=== PATIENT | male | born 2000 | race African-American/Black ===

== ENCOUNTER 2021-05-30 20:07 | Inpatient (IN) | payer MEDICAID, OTHER ==
[~2021-05-30] VITALS: Ht 180.3 cm; Wt 84.4 kg
[2021-05-30 22:03] LABS: Basophils # (auto) 0 10 ^3/uL (0-0.2); Basophils % (auto) 0.1 % (0.0-2.0); Eosinophils # (auto) 0 10 ^3/uL (0-0.8); Hemoglobin 14.9 g/dL (13.5-17.5); Lymphocytes # (auto) 0.9 10 ^3/uL (0.4-5.4); Mean Corpuscular Hemoglobin 32.9 pg (28.0-32.0); Mean Corpuscular Hgb Conc. 34.6 g/dL (32.0-36.0); Monocytes # (auto) 0.9 10 ^3/uL (0-1.3); Monocytes % (auto) 13.1 % (0.0-12.0); Neutrophils # (auto) 5.3 10 ^3/uL (1.6-8.6); Neutrophils % (auto) 74.8 % (37.0-80.0); Nucleated Red Blood Cells % 0.1 %; Red Blood Cells 4.52 10^6/uL (4.5-5.90); Red Cell Distribution Width 12.7 % (11.8-14.3); White Blood Cell 7.1 10^3/uL (4.4-10.8)
[2021-05-30 22:22] LABS: Alanine Aminotransferase 77 U/L (16-61); Albumin 3.6 g/dL (3.4-5.0); Anion Gap 6 (5-15); Blood Urea Nitrogen 9 mg/dL (7-18); Calcium 9.7 mg/dL (8.5-10.1); Carbon Dioxide 31 mmol/L (21-32); Chloride 100 mmol/L (98-107); Glucose 123 mg/dL (74-106); Potassium 3.4 mmol/L (3.5-5.1); Sodium 137 mmol/L (136-145)
[2021-05-30 22:27] LABS: Alkaline Phosphatase 77 U/L (45-117); Aspartate Aminotransferase 123 U/L (15-37); BUN/Creatinine Ratio 9.7; Bilirubin, Total 1.7 mg/dL (0.2-1.0); GFR African American 131 mL/min; GFR Non-African American 108 mL/min; Total Protein 8.3 g/dL (6.4-8.2)
[2021-05-31] MEDS ORDERED: DexAMETHasone SOD PHOS 10MG/1ML VIAL INJ IV ONE (00:45)
[2021-05-31] MEDS ORDERED: ALBUTEROL SULF 2.5 MG/0.5ML(0.5%) NEB SOLN NEB ONE (00:45)
[2021-05-31] MEDS ORDERED: cefTRIAXone 1GM/50ML D5W 50 ML IV ONE (00:45)
[2021-05-31] MEDS ORDERED: AZITHROMYCIN 500MG/ 250ML 250 ML IV ONE (00:45)
[2021-05-31] MEDS ORDERED: KETOROLAC TROMETH 30 MG/ML 1ML VIAL IV ONE (00:45)
[2021-05-31] MEDS ORDERED: SODIUM CHLORIDE 0.9% 1,000 ML IV ONE (00:45)
[2021-05-31 01:49] LABS: Magnesium 2.1 mg/dL (1.6-2.6)
[2021-05-31] MEDS ORDERED: NITROGLYCERIN 0.4 MG SL TAB SL PRN (05:30)
[2021-05-31] MEDS ORDERED: TEMAZEPAM 15 MG CAP PO PRN (05:30)
[2021-05-31] MEDS ORDERED: MORPHINE SULFATE INJECTION 2 MG/ML SYRG IV PRN (05:30)
[2021-05-31] MEDS ORDERED: ONDANSETRON HCL 4 MG/2 ML VIAL IV PRN (05:30)
[2021-05-31] MEDS ORDERED: ALBUTEROL SULF 2.5 MG/0.5ML(0.5%) NEB SOLN NEB PRN (05:30)
[2021-05-31] MEDS ORDERED: SODIUM CHLORIDE 0.9% 1,000 ML IV SCH (05:30)
[2021-05-31] MEDS ORDERED: ACETAMINOPHEN 325 MG TAB PO PRN (05:30)
[2021-05-31 06:40] VITALS: BP 133/78
[2021-05-31 09:00] VITALS: BP 120/72
[2021-05-31] MEDS: PANTOPRAZOLE 40 MG TAB PO SCH (09:04)
[2021-05-31] MEDS: DexAMETHasone SOD PHOS 10MG/1ML VIAL INJ IV SCH (09:04)
[2021-05-31] MEDS: ENOXAPARIN SOD 40 MG/0.4 ML SYRINGE SC SCH (09:04)
[2021-05-31] MEDS: ZINC SULFATE 220mg CAP or TAB PO SCH (09:06)
[2021-05-31 09:07] VITALS: BP 120/74
[2021-05-31] MEDS ORDERED: REMDESIVIR PER PHARMACY 0 ML IV SCH ×2 (11:45)
[2021-05-31] MEDS ORDERED: TOCILIZUMAB 400 MG in SODIUM CHL 0.9% 80 ML IV ONE (12:15)
[2021-05-31 13:00] VITALS: BP 126/69
[2021-05-31] MEDS ORDERED: REMDESIVIR 200 MG in NS 210ml LOADING DOSE ADULT IV ONE (15:00)
[2021-05-31] MEDS ORDERED: guaiFENesin-DM 100/10mg/5ml SYR PO PRN (15:30)
[2021-05-31 17:00] VITALS: BP 125/77
[2021-05-31] MEDS ORDERED: LORazepam 0.5 MG TAB PO ONE (18:30)
[2021-05-31 22:00] VITALS: BP 146/66
[2021-05-31] MEDS ORDERED: TOCILIZUMAB 400 MG in SODIUM CHL 0.9% 80 ML IV SCH (22:00)
[2021-05-31] MEDS: ALBUTEROL SULF HFA 90MCG INH 200DOSE IN PRN (22:03)
[2021-06-01] MEDS: cefTRIAXone 1GM/50ML D5W 50 ML IV SCH (01:57)
[2021-06-01] MEDS: AZITHROMYCIN 500MG/ 250ML 250 ML IV SCH (03:06)
[2021-06-01 05:00] VITALS: BP 135/67
[2021-06-01 05:33] LABS: Basophils # (auto) 0 10 ^3/uL (0-0.2); Basophils % (auto) 0.1 % (0.0-2.0); Eosinophils # (auto) 0 10 ^3/uL (0-0.8); Hematocrit 35.4 % (41.0-53.0); Hemoglobin 12.4 g/dL (13.5-17.5); Lymphocytes # (auto) 1.2 10 ^3/uL (0.4-5.4); Lymphocytes % (auto) 14.2 % (10.0-50.0); Mean Corpuscular Hemoglobin 32.9 pg (28.0-32.0); Mean Corpuscular Hgb Conc. 34.9 g/dL (32.0-36.0); Mean Corpuscular Volume 94.2 fL (80.0-100.0); Monocytes # (auto) 1.3 10 ^3/uL (0-1.3); Monocytes % (auto) 14.8 % (0.0-12.0); Neutrophils # (auto) 6.1 10 ^3/uL (1.6-8.6); Neutrophils % (auto) 70.9 % (37.0-80.0); Nucleated Red Blood Cells % 0.1 %; Red Blood Cells 3.76 10^6/uL (4.5-5.90); White Blood Cell 8.6 10^3/uL (4.4-10.8)
[2021-06-01 06:01] LABS: Potassium 3.4 mmol/L (3.5-5.1)
[2021-06-01 06:14] LABS: Albumin 2.6 g/dL (3.4-5.0); BUN/Creatinine Ratio 13.4; Calcium 8.8 mg/dL (8.5-10.1); Total Protein 6.7 g/dL (6.4-8.2)
[2021-06-01] MEDS: ALBUTEROL SULF HFA 90MCG INH 200DOSE IN PRN ×2 (06:44→21:02)
[2021-06-01 09:00] VITALS: BP 130/69
[2021-06-01] MEDS: ENOXAPARIN SOD 40 MG/0.4 ML SYRINGE SC SCH (09:49)
[2021-06-01] MEDS: PANTOPRAZOLE 40 MG TAB PO SCH (09:49)
[2021-06-01] MEDS: ZINC SULFATE 220mg CAP or TAB PO SCH (09:49)
[2021-06-01] MEDS: DexAMETHasone SOD PHOS 10MG/1ML VIAL INJ IV SCH (09:50)
[2021-06-01] MEDS: FUROSEMIDE 20 MG TAB PO SCH (09:52)
[2021-06-01] MEDS: POTASSIUM CHL 20 Meq TABLET PO SCH (09:52)
[2021-06-01 13:00] VITALS: BP 134/60
[2021-06-01] MEDS ORDERED: HYDROcodone-ACET 5/325MG TAB PO PRN (14:15)
[2021-06-01] MEDS: REMDESIVIR 100mg 100 MG in SODIUM CHL 0.9% 230 ML IV SCH (15:18)
[2021-06-01 16:54] VITALS: BP 129/72
[2021-06-01] MEDS: LORazepam 0.5 MG TAB PO PRN (21:04)
[2021-06-01 22:00] VITALS: BP 130/82
[2021-06-02] MEDS: cefTRIAXone 1GM/50ML D5W 50 ML IV SCH (02:03)
[2021-06-02] MEDS: AZITHROMYCIN 500MG/ 250ML 250 ML IV SCH (03:36)
[2021-06-02 05:00] VITALS: BP 131/74
[2021-06-02 05:59] LABS: Albumin 2.5 g/dL (3.4-5.0); Calcium 8.5 mg/dL (8.5-10.1); Potassium 3.4 mmol/L (3.5-5.1)
[2021-06-02 06:02] LABS: BUN/Creatinine Ratio 19.3; Bilirubin, Total 0.6 mg/dL (0.2-1.0); Total Protein 6.3 g/dL (6.4-8.2)
[2021-06-02] MEDS: DexAMETHasone SOD PHOS 10MG/1ML VIAL INJ IV SCH (08:39)
[2021-06-02] MEDS: ZINC SULFATE 220mg CAP or TAB PO SCH (08:39)
[2021-06-02] MEDS: POTASSIUM CHL 20 Meq TABLET PO SCH (08:39)
[2021-06-02] MEDS: FUROSEMIDE 20 MG TAB PO SCH (08:40)
[2021-06-02] MEDS: PANTOPRAZOLE 40 MG TAB PO SCH (08:40)
[2021-06-02] MEDS: ENOXAPARIN SOD 40 MG/0.4 ML SYRINGE SC SCH (08:40)
[2021-06-02 09:00] VITALS: BP 120/73
[2021-06-02] MEDS: ALBUTEROL SULF HFA 90MCG INH 200DOSE IN PRN ×2 (09:44→21:38)
[2021-06-02] MEDS: LORazepam 0.5 MG TAB PO PRN ×2 (09:46→20:49)
[2021-06-02 13:00] VITALS: BP 118/68
[2021-06-02] MEDS: REMDESIVIR 100mg 100 MG in SODIUM CHL 0.9% 230 ML IV SCH (13:21)
[2021-06-02 17:00] VITALS: BP 120/73
[2021-06-02 21:30] VITALS: BP 117/72
[2021-06-03] MEDS: cefTRIAXone 1GM/50ML D5W 50 ML IV SCH (01:29)
[2021-06-03] MEDS: AZITHROMYCIN 500MG/ 250ML 250 ML IV SCH (02:36)
[2021-06-03 05:35] VITALS: BP 124/75
[2021-06-03 06:23] LABS: Albumin 2.5 g/dL (3.4-5.0); BUN/Creatinine Ratio 17.5; Calcium 8.5 mg/dL (8.5-10.1); Potassium 3.6 mmol/L (3.5-5.1)
[2021-06-03 06:26] LABS: Bilirubin, Total 0.6 mg/dL (0.2-1.0); Total Protein 6.2 g/dL (6.4-8.2)
[2021-06-03] MEDS: ALBUTEROL SULF HFA 90MCG INH 200DOSE IN PRN (07:33)
[2021-06-03] MEDS: LORazepam 0.5 MG TAB PO PRN ×2 (08:40→22:32)
[2021-06-03] MEDS: ZINC SULFATE 220mg CAP or TAB PO SCH (08:50)
[2021-06-03] MEDS: DexAMETHasone SOD PHOS 10MG/1ML VIAL INJ IV SCH (08:50)
[2021-06-03] MEDS: ENOXAPARIN SOD 40 MG/0.4 ML SYRINGE SC SCH (08:51)
[2021-06-03] MEDS: POTASSIUM CHL 20 Meq TABLET PO SCH (08:51)
[2021-06-03] MEDS: PANTOPRAZOLE 40 MG TAB PO SCH (08:51)
[2021-06-03 09:00] VITALS: BP 125/76
[2021-06-03] MEDS: FUROSEMIDE 20 MG TAB PO SCH (09:36)
[2021-06-03 10:57] VITALS: BP 125/76
[2021-06-03 13:00] VITALS: BP 119/74
[2021-06-03] MEDS ORDERED: ZINC220T6 PO (13:12)
[2021-06-03] MEDS ORDERED: DEX4T PO (13:12)
[2021-06-03] MEDS ORDERED: ASCO500T11 PO (13:12)
[2021-06-03] MEDS ORDERED: CHOL20007 PO (13:12)
[2021-06-03] MEDS ORDERED: ALBUAER3 IN (13:12)
[2021-06-03] MEDS: REMDESIVIR 100mg 100 MG in SODIUM CHL 0.9% 230 ML IV SCH (15:05)
[2021-06-03 17:00] VITALS: BP 137/71
[2021-06-03] MEDS ORDERED: CHOLECALCIFEROL (VITD3) 2,000 UNIT CAP/TAB PO ONE (20:15)
[2021-06-03] MEDS ORDERED: ZINC SULFATE 220mg CAP or TAB PO ONE (20:15)
[2021-06-03 22:00] VITALS: BP 128/70
[2021-06-03] MEDS: ASCORBIC ACID 500 MG TAB PO SCH (22:17)
[2021-06-04] MEDS: cefTRIAXone 1GM/50ML D5W 50 ML IV SCH (02:07)
[2021-06-04] MEDS: AZITHROMYCIN 500MG/ 250ML 250 ML IV SCH (03:16)
[2021-06-04 05:00] VITALS: BP 110/67
[2021-06-04 07:19] LABS: Albumin 3.2 g/dL (3.4-5.0); Calcium 9.5 mg/dL (8.5-10.1); Potassium 4.1 mmol/L (3.5-5.1)
[2021-06-04 07:23] LABS: Bilirubin, Total 0.8 mg/dL (0.2-1.0); Total Protein 7.7 g/dL (6.4-8.2)
[2021-06-04 09:00] VITALS: BP 131/71
[2021-06-04] MEDS: POTASSIUM CHL 20 Meq TABLET PO SCH (09:57)
[2021-06-04] MEDS: DexAMETHasone SOD PHOS 10MG/1ML VIAL INJ IV SCH (09:57)
[2021-06-04] MEDS: FUROSEMIDE 20 MG TAB PO SCH (09:57)
[2021-06-04] MEDS: PANTOPRAZOLE 40 MG TAB PO SCH (09:57)
[2021-06-04] MEDS: ASCORBIC ACID 500 MG TAB PO SCH (09:58)
[2021-06-04] MEDS: ENOXAPARIN SOD 40 MG/0.4 ML SYRINGE SC SCH (09:58)
[2021-06-04] MEDS ORDERED: CHOLECALCIFEROL (VITD3) 2,000 UNIT CAP/TAB PO SCH (10:00)
[2021-06-04] MEDS ORDERED: ZINC SULFATE 220mg CAP or TAB PO SCH (10:00)
[2021-06-04] MEDS: REMDESIVIR 100mg 100 MG in SODIUM CHL 0.9% 230 ML IV SCH (10:21)
== END 2021-06-04 12:15 | disposition home or self-care (01) | DRG 177 ==
LOC: ER 20:10 → TELE 05-31 05:22 → TELE-EAST 05-31 08:31 → EAST 06-02 15:39
PROVIDERS: ADMIT Nurse Practitioner; ATTEND Internal Medicine
PROC: XW033E5 Introduction of Remdesivir Anti-infective into Peripheral Vein, Percutaneous Approach, New Technology Group 5 (ICD-10-PCS; principal; 2021-05-31)
DX: U07.1 COVID-19 (principal); J96.01 Acute respiratory failure with hypoxia; J12.82 Pneumonia due to coronavirus disease 2019; D89.839 Cytokine release syndrome, grade unspecified; F41.9 Anxiety disorder, unspecified; R79.89 Other specified abnormal findings of blood chemistry
CPT/HCPCS: 36415; 71045; 80053; 82728; 83605; 83615; 83735; 84484; 85025; 85379; 86141; 87040; 87426; 93005; 94640; 96365; 96375; 99291; G0378; J0696; J1100; J1885

== ENCOUNTER 2023-09-19 23:17 | Emergency (ER) | payer OTHER ==
[~2023-09-19] VITALS: Ht 180.3 cm; Wt 96.7 kg
[~2023-09-19 23:17] MED LIST: ALBUAER3 IN; ASCO500T11 PO; CHOL20007 PO; DEX4T PO; ZINC220T6 PO
[2023-09-20] MEDS ORDERED: ACETAMINOPHEN 325 MG TAB PO ONE
[2023-09-20] MEDS ORDERED: methylPREDNISolone SOD SUCC 125 MG/2 ML VL IM ONE (00:45)
[2023-09-20] MEDS ORDERED: IBUPROFEN 800 MG TAB PO ONE (00:45)
[2023-09-20] MEDS ORDERED: AZIT-43 PO (00:52)
[2023-09-20] MEDS ORDERED: IBUP-1456 PO (00:52)
[2023-09-20] MEDS ORDERED: PRED20TA2 PO (00:52)
[2023-09-20] MEDS ORDERED: ALBUAER3 IN (00:52)
[2023-09-20] MEDS ORDERED: cefTRIAXone SOD 1,000 MG VL IM ONE (01:00)
[2023-09-20 01:03] VITALS: BP 109/45; PULSE 113; RESP 19; O2SAT 95
[2023-09-20] MEDS ORDERED: LIDOCAINE 1% HCL (LOCAL ANESTH.) INJ 20ML MDV ID ONE (01:15)
[2023-09-20 01:34] LABS: Rapid Influenza A Positive (Negative); Rapid Influenza B Negative (Negative)
[2023-09-20 01:35] LABS: COVID19 ANTIGEN SOFIA FIA NEGATIVE (NEGATIVE)
[2023-09-20] MEDS ORDERED: OSEL75CA5 PO (01:38)
[2023-09-20 02:22] VITALS: TEMP 99.8
== END 2023-09-20 02:40 | disposition home or self-care (01) ==
LOC: ER 23:17
DX: J20.8 Acute bronchitis due to other specified organisms (principal); J10.1 Influenza due to other identified influenza virus with other respiratory manifestations; F15.90 Other stimulant use, unspecified, uncomplicated; Z87.891 Personal history of nicotine dependence; Z20.822 Contact with and (suspected) exposure to COVID-19
CPT/HCPCS: 36415; 71046; 87426; 87804; 96372; 99285; J0696; J2001; J2930